=== PATIENT | female | born 1960 | race Caucasian/White ===

== ENCOUNTER 2016-11-15 10:09 | Emergency (ER) | payer OTHER ==
[2016-11-15 10:54] LABS: BILIRUBIN NEGATIVE (NEGATIVE); BLOOD TRACE-INTACT Ery/uL (NEGATIVE); CLARITY CLEAR (CLEAR); COLOR YELLOW (YELLOW); GLUCOSE (U) TRACE mg/dL (NORMAL); KETONE (U) NEGATIVE (NEGATIVE); LEUKOCYTES 1+ Leu/uL (NEGATIVE); NITRITE NEGATIVE (NEGATIVE); PROTEIN TRACE (LOW) mg/dL (NEGATIVE); SPECIFIC GRAVITY 1.015 (1.001-1.030); UROBILINOGEN 0.2 mg/dL (0.2-1.0)
[2016-11-15 11:21] LABS: URINARY WBC 20-50
[2016-11-15 11:22] LABS: BACTERIA 1+; SQUAMOUS EPITHELIAL CELLS RARE
[2016-11-15 11:33] LABS: LACTIC ACID 1.1 mmol/L (0.5-2.2)
== END 2016-11-15 13:46 | disposition home or self-care (01) ==
LOC: FER 10:09
PROVIDERS: Internal Medicine
DX: N39.0 Urinary tract infection, site not specified (principal); J02.9 Acute pharyngitis, unspecified; E11.9 Type 2 diabetes mellitus without complications; I10 Essential (primary) hypertension; Z79.84 Long term (current) use of oral hypoglycemic drugs; Z79.899 Other long term (current) drug therapy
CPT/HCPCS: 36415; 71020; 81001; 83605; 84132; 87040; 87450